=== PATIENT | male | born 1960 | race Caucasian/White ===

== ENCOUNTER 2017-12-26 19:07 | Inpatient (IN) | payer OTHER ==
[~2017-12-26] VITALS: Ht 185.4 cm; Wt 78.0 kg
[2017-12-26 19:54] LABS: HEMATOCRIT 43.4 % (38.0-50.0); HEMOGLOBIN 15.8 G/DL (12.5-16.6); MCH 33.5 PG (29.0-34.0); MCHC 36.4 G/DL (30.0-36.0); MCV 91.9 FL (86-99); PLATELET COUNT 186 K/uL (156-360); RBC DIS.WIDTH-CV 11.9 % (11.8-14.6); RBC DIS.WIDTH-SD 39.9 % (39-53); RED BLOOD COUNT 4.72 M/uL (4.00-5.50); WHITE BLOOD COUNT 7.4 K/uL (4.1-10.2)
[2017-12-26 20:00] LABS: CHLORIDE 102 mEq/L (99-109); POTASSIUM 4.5 mEq/L (3.7-5.4); SODIUM 137 mEq/L (136-147)
[2017-12-26 20:01] LABS: GLUCOSE 108 mg/dL (70-99)
[2017-12-26 20:05] LABS: CREATININE 0.9 mg/dL (0.6-1.3); GFR ESTIMATE (CALCULATED) > 59 mL/min/ (58.99-99999)
[2017-12-26 20:06] LABS: UREA NITROGEN (BUN) 12 mg/dL (9-23)
[2017-12-26] MEDS ORDERED: ALEVE220 M2 PO (21:51)
[2017-12-26] MEDS ORDERED: MUSCLE MILK PO (21:54)
[2017-12-27 03:25] VITALS: BP 152/96
[2017-12-27 05:33] LABS: HEMATOCRIT 40.8 % (38.0-50.0); HEMOGLOBIN 14.5 G/DL (12.5-16.6); MCHC 35.5 G/DL (30.0-36.0); MCV 92.7 FL (86-99); PLATELET COUNT 181 K/uL (156-360); RBC DIS.WIDTH-SD 41.1 % (39-53); WHITE BLOOD COUNT 4.8 K/uL (4.1-10.2)
[2017-12-27 05:55] LABS: HDL CHOLESTEROL 45 MG/DL (Desirable>=40); LDL CHOLESTEROL 145 mg/dL (Desirable<100); NON-HDL CHOLESTEROL 163 mg/dL (Desirable<160); TOTAL CHOLESTEROL 208 mg/dL (Desirable<200); TRIGLYCERIDES 90 MG/DL (Normal: <150)
[2017-12-27 08:21] VITALS: BP 157/93
[2017-12-27 10:01] LABS: HEMOGLOBIN A1c (GLYCOHEMOGLOB) 5.3 % (Below 5.7)
[2017-12-27 10:23] LABS: LYME DISEASE SEROLOGY SCREEN NEGATIVE (NEGATIVE)
[2017-12-27 11:48] VITALS: BP 145/88
[2017-12-27 17:47] VITALS: BP 151/90
[2017-12-27 20:40] VITALS: BP 139/88
[2017-12-27 23:54] VITALS: BP 130/86
[2017-12-28 05:26] VITALS: BP 144/84
[2017-12-28 06:12] LABS: HEMATOCRIT 44.9 % (38.0-50.0); HEMOGLOBIN 15.5 G/DL (12.5-16.6); MCH 32.1 PG (29.0-34.0); MCHC 34.5 G/DL (30.0-36.0); PLATELET COUNT 198 K/uL (156-360); RBC DIS.WIDTH-CV 11.8 % (11.8-14.6); RBC DIS.WIDTH-SD 40.9 % (39-53); RED BLOOD COUNT 4.83 M/uL (4.00-5.50); WHITE BLOOD COUNT 6.9 K/uL (4.1-10.2)
[2017-12-28 06:36] LABS: CHLORIDE 102 MEQ/L (99-109); GFR ESTIMATE (CALCULATED) > 59 mL/min/ (58.99-99999); GLUCOSE 122 mg/dL (70-99); MAGNESIUM 2.1 mg/dl (1.3-2.7); POTASSIUM 4.7 MEQ/L (3.7-5.4); SODIUM 139 MEQ/L (136-147); UREA NITROGEN (BUN) 16 mg/dL (9-23)
[2017-12-28 08:00] VITALS: BP 141/83
[2017-12-28 17:44] VITALS: BP 135/77
[2017-12-28 20:15] VITALS: BP 157/88
[2017-12-28 23:10] VITALS: BP 132/86
[2017-12-29 04:40] VITALS: BP 138/92
[2017-12-29 05:22] LABS: HEMOGLOBIN 15.3 G/DL (12.5-16.6); MCH 32.3 PG (29.0-34.0); MCHC 34.8 G/DL (30.0-36.0); MCV 92.8 FL (86-99); PLATELET COUNT 213 K/uL (156-360); RBC DIS.WIDTH-CV 11.9 % (11.8-14.6); RBC DIS.WIDTH-SD 40.6 % (39-53); RED BLOOD COUNT 4.74 M/uL (4.00-5.50); WHITE BLOOD COUNT 6.3 K/uL (4.1-10.2)
[2017-12-29 05:45] LABS: CHLORIDE 103 MEQ/L (99-109); GFR ESTIMATE (CALCULATED) > 59 mL/min/ (58.99-99999); GLUCOSE 123 mg/dL (70-99); POTASSIUM 4.3 MEQ/L (3.7-5.4); SODIUM 138 MEQ/L (136-147); UREA NITROGEN (BUN) 16 mg/dL (9-23)
[2017-12-29 07:13] VITALS: BP 135/87
[2017-12-29 11:55] VITALS: BP 134/81
[2017-12-29] MEDS ORDERED: PRAVASTATIN SOD80 MG PO (12:20)
[2017-12-29] MEDS ORDERED: TYLENOL REGULA325 MG PO (12:20)
[2017-12-29] MEDS ORDERED: ELIQUIS5 MG PO (12:20)
== END 2017-12-29 14:40 | disposition home or self-care (01) | DRG 64 ==
LOC: EME 19:07 → EDOF 12-27 02:17 → 4EAST 12-27 02:17 → ENRESERV 12-27 02:18 → 4EAST 12-27 03:19
PROVIDERS: Hospitalist; Internal Medicine; Physician Assistant
DX: I63.9 Cerebral infarction, unspecified (principal); I77.71 Dissection of carotid artery; R47.81 Slurred speech; I65.22 Occlusion and stenosis of left carotid artery; R47.01 Aphasia; R29.700 NIHSS score 0; I10 Essential (primary) hypertension
CPT/HCPCS: 70450; 70496; 70498; 70551; 71046; 80048; 80061; 83036; 83735; 85027; 86618; 93005; 93306; 99281; 99285; J1650; J2405